=== PATIENT | female | born 1990 | race African-American/Black ===

== ENCOUNTER 2018-03-21 13:47 | Emergency (ER) | payer SELFPAY ==
[~2018-03-21] VITALS: Ht 177.8 cm; Wt 104.3 kg
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
[2018-03-21 16:09] LABS: ABSOLUTE BASOPHIL COUNT 0 /CUMM (0.0-0.2); ABSOLUTE EOSINOPHIL COUNT 0.1 /CUMM (0.0-0.7); ABSOLUTE GRANULOCYTE CT 4.7 /CUMM (1.4-6.5); ABSOLUTE LYMPH COUNT 2.2 /CUMM (1.2-3.4); ABSOLUTE MONOCYTE COUNT 0.5 /CUMM (0.10-0.60); BASOPHIL % 0.2 % (0.0-2.0); EOSINOPHIL % 1.5 % (0-5); GRANULOCYTE % 62.4 % (42.2-75.2); HEMATOCRIT 39.3 % (37-47); MEAN CORPUSCULAR HGB 32.6 PG (27.0-31.0); MEAN CORPUSCULAR HGB CONC 33.9 G/DL (33.0-37.0); MEAN CORPUSCULAR VOLUME 96.2 FL (81.0-99.0); MEAN PLATELET VOLUME 8.9 FL (7.4-10.4); PLATELET COUNT 250 /CUMM (130-400); RBC DISTRIBUTION WIDTH 14.4 % (11.5-14.5); RED BLOOD CELL CT 4.09 /CUMM (4.20-5.40); WHITE BLOOD CELL COUNT 7.5 /CUMM (4.8-10.8)
[2018-03-21 16:34] VITALS: BP 112/62
--- NOTE | 2018-03-21 16:46 | RADIOLOGY REPORT ---
EXAMINATION: XR CHEST CLINICAL INFORMATION: Evaluate for pulmonary edema. COMPARISON: None TECHNIQUE: 2 views of the chest were obtained. FINDINGS: No airspace opacities or pleural effusions are seen. The cardiomediastinal silhouette is normal. No acute osseous abnormality is seen. IMPRESSION: Clear lungs. No acute process.
== END 2018-03-21 17:09 ==
LOC: ERH 13:47
PROVIDERS: Physician Assistant Medical
DX: R07.89 Other chest pain (principal)
CPT/HCPCS: 71046; 93005; 93010